=== PATIENT | male | born 1990 | race Caucasian/White ===

== ENCOUNTER 2020-12-26 22:02 | Emergency (ER) | payer SELFPAY ==
[~2020-12-26] VITALS: Ht 185.4 cm; Wt 72.6 kg
[2020-12-27] MEDS ORDERED: NARCAN4 M1 (00:23)
== END 2020-12-27 00:27 | disposition home or self-care (01) ==
LOC: ER 22:02
DX: T40.1X1A Poisoning by heroin, accidental (unintentional), initial encounter (principal)
CPT/HCPCS: 71045; 93005; 93010; 99285-25; A9270